=== PATIENT | female | born 1950 | race Caucasian/White ===

== ENCOUNTER 2019-12-15 07:40 | Day surgery (SDC) | payer OTHER ==
[2019-11-30 09:19] LABS: URINE BILIRUBIN NEGATIVE (Negative); URINE BLOOD NEGATIVE (Negative); URINE CLARITY CLEAR; URINE COLOR YELLOW; URINE GLUCOSE-RANDOM* NEGATIVE (Negative); URINE KETONES NEGATIVE (Negative); URINE LEUKOCYTES-REFLEX NEGATIVE (Negative); URINE NITRITE-REFLEX NEGATIVE (Negative); URINE PROTEIN (DIPSTICK) NEGATIVE (Negative); URINE SPECIFIC GRAVITY >= 1.030 (1.005-1.035); URINE UROBILINOGEN 0.2 E.U./dl (0.2-1.0)
[2019-11-30 09:21] LABS: HEMATOCRIT 41.1 % (37.0-47.0); HEMOGLOBIN 13.4 gm/dL (12.0-15.0); MCH 30.2 pg (26.0-34.0); MCHC 32.7 g/dL (28.0-37.0); MCV 92.2 fL (80.0-100.0); RBC 4.46 mil/uL (4.20-5.00)
[2019-11-30 09:30] LABS: PROTIME 9.6 Seconds (9.3-11.4)
[2019-11-30 09:31] LABS: CALCIUM 10.6 mg/dL (8.5-10.1); CREATININE 1.1 mg/dL (0.6-1.0); POTASSIUM 4.3 mmol/L (3.5-5.1)
--- NOTE | 2019-11-30 17:12 | EKG ---
[address] [address] ELECTROCARDIOGRAM REPORT Name: HUI DAVIS Room #: PRE [facility] M.R.#: [id number] Admission: Attend Phys: Felton Valdes MD Discharge: Date of : 52 Report #: [id number] THIS REPORT FOR: //name// [facility] Test Date: 2019-11-30 Test Time: 09:03:30 Pat Name: HUI DAVIS Department: Room: Gender: F Field Enumerator: brayden : 1950 Requested By: Felton Valdes Order Number: [id number] MD: Mustapha Ta Measurements Intervals Hospers Rate: 60 P: 44 MS: 176 QRS: 48 QRSD: 106 T: 20 QT: 396 QTc: 396 Interpretive Statements Sinus rhythm No previous ECG available for comparison Electronically Signed On 11-30-2019 17:12:17 PRECISION CROP MANAGER by Mustapha Ta [email or web address] <ELECTRONICALLY SIGNED> By: Mustapha Ta MD 11/30/19 1712 0903 2 Mustapha Ta MD /MIRIAN
[~2019-12-15] VITALS: Ht 162.6 cm; Wt 81.2 kg
[~2019-12-15 07:40] MED LIST: ADVIL200 M3 PO; DULOXETINE HCL30 MG PO; FISH OIL 1,0001 EAC9 PO; FLONASE 0.05%50 MCG NARES; GABAPENTIN 100100 MG PO; VITAMIN D400 UNIT PO; ZYRTEC10 M5 PO
[2019-12-15 09:19] VITALS: BP 138/80
[2019-12-15 12:30] VITALS: BP 128/71
--- NOTE | 2019-12-15 14:48 | NUR ---
ASSUMED CARE OF THE PT AT 1200. PT HAD R HIP DONE AND HAS MYRA DRESSING, ICE PACKS AND SCD'S IN PLACE ALONG WITH COLTON WRAPS AND KNEE HIGH EULOGIO HOSE. PAIN IS BEING CONTROLLED BY PAIN MEDS, SEE EMAR. PT WALKED WITH PT AND IS VERY UNSTEADY WITH HER GAIT, USES WALKER. LUNGS ARE CLEAR, PULSES ARE STRONG, SX DRESSING INTACT AND WARM TO TOUCH, WITH NO BLEEDING. R HAND DRY AND INTACT. FALL PRECAUTIONS IN PLACE AND PT EDUCATED. BED IN LOWEST POSITION WITH ALARM ON AND CALL LIGHT IS WITHIN REACH. WILL CONTINUE TO MONITOR THE PT.
[2019-12-15 19:30] VITALS: BP 101/61
--- NOTE | 2019-12-16 01:10 | NUR ---
ASSUMED PT CARE AT 1900. PT REPORTING PAIN OF 4, PAIN MEDS GIVEN, PROVIDED RELIEF. UP TO COMMODE TONIGHT, STEADY ON FEET. ANTIBIOTICS & FLUIDS INFUSING ORDERED. RIGHT HIP DRESSING DRY AND ITACT, WITH ICE PACK APPLIED. PT SLEEPING THROUGH THE NIGHT, WILL CONTINUE TO FOLLOW POC.
[2019-12-16 03:10] VITALS: BP 109/62
[2019-12-16 05:17] LABS: HEMATOCRIT 30.8 % (37.0-47.0); HEMOGLOBIN 10.1 gm/dL (12.0-15.0); MCH 30.6 pg (26.0-34.0); MCV 92.8 fL (80.0-100.0); RBC 3.31 mil/uL (4.20-5.00); RDW 14.2 % (10.5-14.5); WBC 8.5 thou/uL (4.0-11.0)
[2019-12-16 09:16] VITALS: BP 122/61
[2019-12-16] MEDS ORDERED: ASPIR 8181 MG PO (13:14)
[2019-12-16 13:21] VITALS: BP 122/61
[2019-12-16 13:33] VITALS: BP 122/61
--- NOTE | 2019-12-16 13:37 | NUR ---
PT ADMITTED REALTED TO R TOTAL HIP REPLACEMENT. CM REVIEWED CHART AND SPOKE WITH CARE TEAM. CM MET WITH PT AND DTR AT BEDSIDE THIS DAY. PT IS A&O X4. CM ROLE INTRODUCED. PT INDICATED SHE LIVES IN A HOUSE ALONE WITH 2 STEPS TO ENTER AND 2 STEPS INSIDE. 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 PT INDICATED SHE WOULD LIKE TO HAVE HH FOR TWO WEEKS UPON DC SHE HAS A CO PAY FOR OUTPATIENT THERAPY. REFERRAL SENT TO [facility]. PT IS TO DISCHARGE HOME WITH PT THIS DAY. NO OTHER CM INTERVENTION INDICATED. CASE CLOSED.
--- NOTE | 2019-12-16 14:24 | NUR ---
PT CARE ASSUMED AT 0700. A&Ox4. PT PAIN CONTROLLED WELL WITH PAIN MEDICATION. IV DISCONTINUED. PT DISCHARGED WITH HOME HEALTH. PT DISCHARGED WITH DAUGHTER. PT OBSERVATION PT AND CLEARED BY PT. PT UP WITH GAITBELT AND A WALKER.
--- NOTE | 2019-12-16 14:50 | NUR ---
FAXED REFERRAL TO [facility] SPOKE WITH NIKHIL CALDERON THEY DO NOT TAKE PT'S INSURANCE. FAXED REFERRAL TO [facility] SPOKE WITH SHAWNA IN INTAKE SHE RECEIVED REFERRAL AND CAN ACCEPT BUT WOULD BE ABLE TO START VISITS TIL TUESDAY 12/19 PT NEEDS TO BE SEEN THE DAY AFTER DC.
--- NOTE | 2019-12-26 16:06 | O ---
[facility] [place] [address] OPERATIVE REPORT Name: HUI DAVIS Room #: DEP [facility] M.R.#: [id number] Admission: 12/15/19 Attend Phys: Felton Valdes MD Discharge: 12/16/19 Date of : 52 Report #: [id number] THIS REPORT FOR: //name// CC: Beatrice Valdes DATE OF SERVICE: 12/15/2019 PREOPERATIVE DIAGNOSIS: Right hip osteoarthritis. POSTOPERATIVE DIAGNOSIS: Right hip osteoarthritis. PROCEDURE: Right total hip arthroplasty. SURGEON: Felton Valdes MD WAFER PRODUCTION WORKER: Rosa Baugh PA-C. INDICATIONS FOR WAFER PRODUCTION WORKER: Throughout the case, extensive retraction and manipulation of the hip was required. This was afforded to me by my night assistant. ANESTHESIA: General. IMPLANTS: Mendoza and Nephew size 11 high offset Synergy press-fit stem, a size 52 R3 acetabular cup, and a size 36+4 cobalt chrome head. ESTIMATED BLOOD LOSS: 100 mL. COMPLICATIONS: None. SPECIMENS: None. CONDITION UPON LEAVING THE OPERATING ROOM: Stable. INDICATIONS FOR PROCEDURE: The patient is a 69-year-old female with right hip osteoarthritis who failed conservative measures for this and after discussion with her, she elected for right total hip arthroplasty. DESCRIPTION OF PROCEDURE: Risks, benefits, alternatives, and complications were discussed in detail with the patient including but not limited to risk of anesthesia, risk of damage to nerves, arteries, blood vessels, risk for infection, bleeding, risk for leg length discrepancy, instability and need for reoperation. Informed consent was obtained from the patient. Right hip was appropriately marked in the preoperative holding area. IV Ancef was given for preoperative antibiotics. She was brought to the operating room and placed in supine position on operating room table. LMA anesthesia was induced without [facility] [address] [place] [address] OPERATIVE REPORT Name: HUI DAVIS Room #: DEP [facility] Juan#: [id number] Admission: 12/15/19 Attend Phys: Felton Valdes MD Discharge: 12/16/19 Date of : 52 Report #: [id number] complication. She was then placed in the left lateral decubitus position with the right hip uppermost. Right hip and lower extremity were prepped and draped in normal sterile fashion. Timeout was performed properly identifying the patient and procedure as well as the instrumentation and implants. Standard posterior approach to the hip was made with 10 blade through the skin. Dissection was taken down the fascia with Bovie cautery. Kim elevator was used to clean off the fascia. Fresh 10 blade was used to make a fascial incision. The patient was taken proximally and distally with curved Hernandez scissor. Charnley retractor was placed. Trochanteric bursa was taken down with Bovie cautery. Piriformis tendon was identified, tagged and taken down with Bovie. Short external rotators were also taken down with Bovie cautery. Capsulotomy was made and capsule ends were tagged for later repair. The hip was dislocated. There was extensive osteoarthritic change of the femoral head. Femoral neck cut was made 1 cm proximal to lesser trochanter based on preoperative templating and the femoral head was removed. Deep acetabular retractors were placed. Labrum was removed sharply. Pulvinar was removed with Bovie cautery. Acetabulum was then sequentially reamed up to a size 52, at which point there was excellent bleeding cancellous bone. A size 51 trial cup was placed, found to have a good fit. A final size 52 R3 acetabular cup was placed and seated. One acetabular screw was placed for backup fixation. Polyethylene liner for a 36 head was placed. Attention was then turned to the femur. This was reamed and broached up to a size 11, at which point the size 11 broach was stable and this was trialed with a high offset neck and a 36+0 head. Hip was reduced, taken through range of motion, found to be stable, found to have somewhat short on the right compared to left and it was felt we could make up for this with the final implant. Hip was dislocated. Broach was removed and final size 11 high offset Synergy press-fit stem was placed and seated and this was then trialed with a 36+4 head. Hip was reduced, taken through range of motion, found to be stable, found to have equal leg lengths. Hip was dislocated one last time and a final size 36+4 cobalt chrome head was placed. Hip was reduced, taken through range of motion, found to be stable, found to have equal leg lengths. Wound was thoroughly irrigated with normal saline. A periarticular injection consisting of morphine, ropivacaine, epinephrine and Toradol was placed around the hip joint capsule. A gram of vancomycin was placed deep in the capsule. The capsule and piriformis were repaired with 0 FiberWire. Fascia was closed with 0 Vicryl, skin was closed with 2-0 Vicryl, skin staple and a MYRA dressing was applied. The patient tolerated this procedure well and went to recovery room under care of anesthesia postoperatively. <ELECTRONICALLY SIGNED> By: Felton Valdes MD 12/26/19 1606 1122 1134 Felton Valdes MD /nt
== END 2019-12-16 14:41 | disposition home or self-care (01) ==
LOC: TBA 07:40 → OR 07:40 → TBA 07:41 → OR 08:18 → 4S 13:11 → OR 13:13 → ENTRNSPT 12-16 13:58 → EDTRNSPTSTS 12-16 13:59 → OR 12-16 14:41
PROVIDERS: Orthopaedic Surgery
DX: M16.11 Unilateral primary osteoarthritis, right hip (principal); M25.551 Pain in right hip; F32.9 Major depressive disorder, single episode, unspecified; Z90.49 Acquired absence of other specified parts of digestive tract; Z90.710 Acquired absence of both cervix and uterus; Z98.890 Other specified postprocedural states
CPT/HCPCS: 10102; 50010; 50101; 50382; 50414; 51412; 53000; 53078; 53367; 56524; 56528; 56530; 57095; 57103; 62110; 62900; 70005

== ENCOUNTER → 2021-09-09 | Outpatient (CLI) | payer OTHER ==
[~2021-09-09] MED LIST changes: +ASA81BEC PO; +ASPIR 8181 MG PO; +TURMERIC500 M2 PO; +VITAMIN C500 M1 PO
[2021-09-09 13:25] LABS: URINE BILIRUBIN NEGATIVE (Negative); URINE BLOOD NEGATIVE (Negative); URINE CLARITY CLEAR; URINE COLOR YELLOW; URINE GLUCOSE-RANDOM* NEGATIVE (Negative); URINE KETONES NEGATIVE (Negative); URINE LEUKOCYTES-REFLEX NEGATIVE (Negative); URINE NITRITE-REFLEX NEGATIVE (Negative); URINE PROTEIN (DIPSTICK) NEGATIVE (Negative); URINE UROBILINOGEN 0.2 E.U./dl (0.2-1.0)
[2021-09-09 13:27] LABS: MCH 29.4 pg (26.0-34.0); MCHC 32.5 g/dL (28.0-37.0); MCV 90.4 fL (80.0-100.0); RBC 4.43 mil/uL (4.20-5.00); RDW 14.2 % (10.5-14.5); WBC 5.7 thou/uL (4.0-11.0)
[2021-09-09 13:40] LABS: ALBUMIN 3.8 g/dL (3.4-5.0); CALCIUM 9.6 mg/dL (8.5-10.1); INR 0.89; POTASSIUM 4.7 mmol/L (3.5-5.1); PROTIME 9.8 Seconds (10.5-12.1)
== END ==
LOC: PAC 09:05
PROVIDERS: ATTEND Orthopaedic Surgery
DX: Z01.812 Encounter for preprocedural laboratory examination (principal); M16.12 Unilateral primary osteoarthritis, left hip; E11.9 Type 2 diabetes mellitus without complications

== ENCOUNTER 2021-09-19 07:12 | Day surgery (SDC) | payer OTHER ==
[~2021-09-19] VITALS: Ht 162.6 cm; Wt 83.5 kg
[2021-09-19 08:05] VITALS: BP 130/66
--- NOTE | 2021-09-19 14:13 | NUR ---
PATIENT ARRIVED TO 4S VIA BED. ADMIT FOR LEFT TOTAL LEFT HIP REPLACEMENT. LEFT HIP MYRA DRESSING DRY, CLEAN, AND INTACT. ICE PACK TO AREA. ROOM AIR. LEFT AC IV WITH LR INFUSING @ 75 MLS. SCDS ON, TEDS ON. PAIN 3/10 LEFT HIP. NORCO GIVEN FOR LEFT HIP PAIN. PT WORKING WITH HER NOW. HAD A BOUT OF NAUSEA AND ZOFRAN GIVEN, IT HAS RESOLVED.
[2021-09-19 15:49] VITALS: BP 130/66
--- NOTE | 2021-09-19 15:53 | NUR ---
Case opened to follow for dc planning. Pt is a&ox4 and is s/p LT THR. Cm role introduced and dc needs discussed. The pt states she plans to go home with HH first for a couple weeks then transition to outpt therapy. Her dtr will stay with her initially. She has rwalker from her other hip replacement last year. [place] that she has already spoken to [facility]. She would like to use them as she will be going to outpt therapy there once she is not homebound. She lives in her own home with 4 steps to get completley inside. She has supportive family. Therapy has evaluated her this afternoon and all parties are anticipating dc to home tomorrow with HH. Referral faxed and called to [facility]. They can start RN this or PT thursday pending the physician orders. Covid neg test results faxed as well.
[2021-09-19 16:00] VITALS: BP 110/72
[2021-09-19 21:28] VITALS: BP 98/61
--- NOTE | 2021-09-20 03:59 | NUR ---
ASSUMED CARE OF PT AT 1900. BEDSIDE REPORT RECIEVED. KATH ASSESSMENT COMPLETE. EULOGIO AJ ON. L MYRA DRESSING CDI, PATENT, AND SECURED IN POCKED OF GOWN. NO APPARENT DRAINAGE ON L HIP DRESSING. POST LR STILL RUNNING. FINISHED AND HUNG ORDERED MAINTANTENCE FLUIDS. SECOND AND FINAL BAG OF CEFAZOLIN HUNG PER JAN. PILLOW BETWEEN LEGS TO RPEVENT CROSSING. ASSISTED PT C SET UP TO BRUSH TEETH. HOURLY ROUNDING CONTINUING. ALL NEEDS MET. CALL LIGHT IN REACH.
--- NOTE | 2021-09-20 05:56 | NUR ---
I CONCUR WITH THE NOTE AND ASSESSMENT DONE BY Juan Jose BALL LPN
[2021-09-20 07:51] VITALS: BP 129/75
[2021-09-20 11:19] VITALS: BP 130/66
[2021-09-20] MEDS ORDERED: MS CONTIN15 MG PO (11:32)
[2021-09-20] MEDS ORDERED: HYDROCODON-ACE1 EAC7 PO (11:32)
[2021-09-20] MEDS ORDERED: TRI-BUFFERED A325 M1 PO (11:34)
[2021-09-20 11:47] VITALS: BP 130/66
--- NOTE | 2021-09-20 12:12 | NUR ---
Pt up in chair, dressed, provided pain meds, call light with in reach. States she is ready to go home.
--- NOTE | 2021-09-20 12:29 | NUR ---
pt in bed c/o pain to l hip, x1 dose given as ordered, doctor paged, ice pack to site.
--- NOTE | 2021-09-20 13:52 | O ---
[facility] [place] [address] OPERATIVE REPORT Name: HUI DAVIS Room #: 444-P [facility] M.R.#: [id number] Admission: 09/19/21 Attend Phys: Felton Valdes MD Discharge: Date of : 52 Report #: [id number] THIS REPORT FOR: cc: Beatrice Brown MD, Jennifer S. MD Abraham,Felton Fiore MD ~ DATE OF SERVICE: 09/19/2021 PREOPERATIVE DIAGNOSIS: Left hip osteoarthritis. POSTOPERATIVE DIAGNOSIS: Left hip osteoarthritis. PROCEDURE: Left total hip arthroplasty. SURGEON: Felton Valdes MD. RUBBER MOLD MAKER: Rosa Baugh PA-C. INDICATION FOR RUBBER MOLD MAKER: Throughout the case, extensive retraction, manipulation of the hip including dislocation and reduction was required. This was afforded to me by my registered medical assistant. ANESTHESIA: LMA. IMPLANTS: Mendoza and Nephew size 13 high offset Synergy press-fit stem, a size 52 R3 acetabular cup, size 36+0 cobalt chrome head and a single Accord cerclage cable for prophylactic femur fixation. ESTIMATED BLOOD LOSS: 200 mL COMPLICATIONS: None. SPECIMENS: None. CONDITION UPON LEAVING THE OR: Stable. INDICATIONS FOR PROCEDURE: The patient is a 71-year-old female with left hip osteoarthritis. She had failed conservative measures for this and after discussion with her, she elected for left total hip arthroplasty. DESCRIPTION OF PROCEDURE: Risks, benefits, alternatives, complications were discussed in detail with the patient including but not limited to risk of anesthesia, risk of damage to nerves, arteries, blood vessels, risk for infection, bleeding, risk for continued hip pain, leg length discrepancy, instability and need for reoperation. Informed consent was obtained from the patient. Left hip was appropriately marked in the preoperative holding area. [address] [address] OPERATIVE REPORT Name: HUI DAVIS [id number] Admission: 09/19/21 Attend Phys: Felton Valdes MD Discharge: Date of : 52 Report #: [id number] IV Ancef was given for preoperative antibiotics. She was brought to the operating room and placed in the supine position on the operating table. LMA anesthesia was induced without complications. She was then placed in the right lateral decubitus position with the left hip uppermost. Left hip and lower extremity were prepped and draped in normal sterile fashion. Timeout was performed properly identifying the patient and procedure as well as the instrumentation and implants. All in the operating room were in agreement. Standard posterior approach to the hip was made with 10 blade through the skin. Dissection was taken down to the fascia with Bovie cautery and Kim elevator was used to clean off the fascia. Fresh 10 blade was used for fascial incision. This was taken proximally and distally with curved Hernandez scissor. Charnley retractor was placed. Trochanteric bursa was taken down with Bovie cautery. Piriformis tendon was identified, tagged and taken down with Bovie. Short external rotators were also taken down with Bovie cautery. Capsulotomy was made and capsule ends were tagged for later repair. Hip was dislocated. There was extensive osteoarthritic change of the femoral head. Femoral neck cut was made 1 cm proximal to the lesser trochanter based on preoperative templating. The femoral head was removed. Deep acetabular retractors were placed. Labrum was removed sharply. Pulvinar was removed with Bovie cautery. Acetabulum was then sequentially reamed up to a size 52, at which point there was excellent bleeding cancellous bone. A size 51 trial cup was placed, found to have a good fit. Final size 52 R3 acetabular cup was placed and seated. One acetabular screw was placed for backup fixation and polyethylene liner for a 36 head was placed. Attention was turned to the femur. This was reamed and broached up to a size 13, at which point the size 13 broach was stable. This was trialed with a 36+0 head. Hip was reduced, taken through range of motion, found to be stable, found to have equal leg lengths. Hip was dislocated. A single Accord cerclage cable was placed around the proximal femur for prophylactic fixation and a final size 13 high offset Synergy stem was placed and seated. This was then trialed again with a 36+0 head. Hip was reduced, taken through range of motion, found to be stable, found to have equal leg lengths. Hip was dislocated one last time and a final size 36+0 cobalt chrome head was placed. Hip was reduced, taken through range of motion, found to be stable, found to have equal leg lengths. Wound was thoroughly irrigated with normal saline. A periarticular injection consisting of morphine, ropivacaine, epinephrine, Toradol was placed around the hip joint capsule. A gram of vancomycin was placed deep in the joint. The capsule and piriformis were repaired with 0 FiberWire. Fascia was closed with 0 Vicryl. Skin was closed with 2-0 Vicryl, skin staple and a MYRA dressing was applied. The patient tolerated this procedure well and went to recovery room under care of anesthesia postoperatively. <ELECTRONICALLY SIGNED> By: Felton Valdes MD 09/20/21 1352 1116 1140 Felton Valdes MD /ronaldo
[2021-09-20] MEDS ORDERED: PERCOCET 5-3251 EACH PO (14:02)
--- NOTE | 2021-09-20 16:35 | NUR ---
Pt up in bed states pain is better now a dull three, smile on face, feels like resting. call light remains at side, will monitor.
[2021-09-20 16:46] VITALS: BP 123/66
--- NOTE | 2021-09-20 16:59 | NUR ---
CARE TEAM INDICATED THAT PT'S PAIN WASN'T YET WELL CONTROLLED AND THAT THEY WERE NOW ANTICIAPTING DC HOME TOMORROW. CM CALLED AND NOTIFIED [facility] OF ANTICPATED THURSDAY DC. THEY HAVE SCHEDULED PT FOR A THURSDAY START OF CARE. FAX FINAL ORDERS TO CALL . PT HAS ALL NEEDED DME.
[2021-09-20 19:26] VITALS: BP 107/56
--- NOTE | 2021-09-20 23:18 | NUR ---
ASSESSMENT COMPLETED.PT ASSITED TO THE BSC. SHE IS MOVING WELL. MYRA DRSG TO LEFT HIP LOOKS C/D/I, ICE HERB IN USE. PRN PAIN MEDS GIVEN. PT DENIES FURTHER NEEDS AND CONCERNS. PLAN ON D/C HOME TOMORROW.
[2021-09-21 04:51] VITALS: BP 104/59
[2021-09-21 07:38] VITALS: BP 113/67
--- NOTE | 2021-09-21 10:32 | NUR ---
ASSUMED PT CARE THIS AM. PT IS ALERT & ORIENTED X4. PT HAS IV SITE ON LAC SALINE LOCKED. PT IS UP WITH ASSIST X1 TO THE BEDSIDE COMMODE WITH GAITBLET AND WALKER. PT HAS MYRA DRESSING, BILATERAL EULOGIO HOSES THIGH HIGH, ICE PACK, SCD AND IS. PT IS ON ROOM AIR. REMOVED IV. EDUCATED AND INFORMED PT ABOUT DC INSTRUCTIONS SUCH WHEN TO FOLLOW UP AND MEDICATIONS. AWAITING FOR PT DAUGHTER TO PICK HER UP. WILL CONTINUE TO MONITOR PT. FOLLOW POC.
--- NOTE | 2021-09-21 12:12 | NUR ---
PT DISCHARGING TODAY TO HOME WITH HH FAXED DC ORDERS/SUMMARY TO [facility] RECEIVED CONFIRMATION AND THEY WILL NOTIFY PT TO ARRANGE VISITS.
== END 2021-09-21 11:13 | disposition home or self-care (01) ==
LOC: OR 07:12 → 4S 07:12 → OR 12:42 → 4S 12:47 → EDSTATUS 12:48 → PRE 12:57 → EDSTATUS 16:04 → OR 16:10
PROVIDERS: ATTEND Orthopaedic Surgery
DX: M16.12 Unilateral primary osteoarthritis, left hip (principal); M25.552 Pain in left hip; F32.9 Major depressive disorder, single episode, unspecified; Z96.641 Presence of right artificial hip joint; Z98.890 Other specified postprocedural states; Z79.899 Other long term (current) drug therapy; Z20.822 Contact with and (suspected) exposure to COVID-19; Z87.891 Personal history of nicotine dependence; Z90.710 Acquired absence of both cervix and uterus; Z90.49 Acquired absence of other specified parts of digestive tract; Z91.040 Latex allergy status
CPT/HCPCS: 50010; 50101; 50382; 50414; 51412; 53000; 53078; 53367; 56524; 56528; 56530; 57095; 57103; 57496; 62110; 62900; 70005